=== PATIENT | female | born 1990 | race Asian ===

== ENCOUNTER → 2016-07-29 | Outpatient (CLI) | payer OTHER ==
--- NOTE | 2016-07-29 14:25 | DIAGNOSTIC IMAGING REPORT ---
CT SCAN OF THE ABDOMEN AND PELVIS WITHOUT IV CONTRAST CLINICAL HISTORY: Right flank pain. COMPARISON STUDY: Renal ultrasound dated 07/24/2006. TECHNIQUE: CT scan of the abdomen and pelvis is performed from the lung bases to the proximal femora. Images are reviewed in the axial, sagittal, and coronal planes. IV contrast was not administered for this examination. Automated dose control exposure was utilized. CT DOSE: 426.77 mGycm FINDINGS: Lung bases: The heart is normal in size and without pericardial effusion. The lung bases are clear. Liver: The unenhanced liver is normal in size, contour, and attenuation. There is no intrahepatic biliary ductal dilatation. Gallbladder: Unremarkable. Spleen: Normal in size and attenuation. Pancreas: Unremarkable. Adrenal glands: Unremarkable. Kidneys: The unenhanced kidneys are normal in size and without hydronephrosis. A tiny extrarenal pelvis is noted on the right. There are no renal calculi identified. There is no evidence of contour deforming renal mass lesion. Abdominal vasculature: The abdominal aorta is normal in course and caliber. Bowel: The small bowel and colon are normal in course and caliber. The appendix is well-visualized and normal. Peritoneum: There is no intraperitoneal free air or abdominal ascites. There is a small fat-containing umbilical hernia. Lymphadenopathy: None. Pelvic viscera: The bladder, uterus, and adnexa are normal as visualized. There are bilateral ovarian follicles. There is a small volume of free fluid in the cul-de-sac. Skeletal structures: No lytic or blastic lesions are seen. A disc herniation is suggested at L4-L5. IMPRESSION: 1. There are no acute infectious or inflammatory findings in the abdomen or pelvis. No renal calculi are identified. 2. There is a small volume of free fluid in the cul-de-sac, likely within physiologic limits. 3. A disc herniation is suggested at L4-L5. Electronically signed by: Anthony Stephenson M.D. 07/29/2016 2:24 PM Dictated Date/Time: 07/29/2016 2:19 PM
== END | disposition home or self-care (01) ==
LOC: C.CTS 13:05
PROVIDERS: ATTEND Internal Medicine
DX: R10.9 Unspecified abdominal pain (principal); R31.9 Hematuria, unspecified